=== PATIENT | male | born 1950 | race Caucasian/White ===

== ENCOUNTER 2019-06-16 09:13 | Observation (INO) | payer BC ==
--- NOTE | 2019-06-16 09:52 | ED ---
HPI Chest Pain - HPI Summary HPI Summary: This pt is a 68 Y/O M presenting to [facility] accompanied by his with a CC of Left sided CP that was present since 0845 this morning and has a severity of 4/ 10. He states that his bilateral arms feel light. He states that he and his were driving out of town to head home to [place]. He states that the pain was sharp and he became diaphoretic. He states that he pulled over and let his drive to the hospital. He denies any SOB, N/V, chills, fevers. He states that his chest pain was resolved after being placed in his room. He states that while he was walking he had increased chest pain. He has no aggravating or alleviating factors. He had a slovenian and milk for breakfast. He states that he has a PMHx of indigestion but states that this felt very different. He has a PMHx of DVTs and blood clots and currently takes Coumadin. - History of Current Complaint Chief Complaint: EDChestPainROMI Time Seen by Provider: 06/16/19 09:23 Hx Obtained From: Patient Onset/Duration: Started Hours Ago - 1, Resolved Time of Onset: 08:45 Timing: Constant, Lasting Hours - 1 Initial Severity: Moderate Current Severity: None Pain Intensity: 4 Pain Scale Used: 0-10 Numeric Chest Pain Location: Left Anterior Character: Sharp/Stabbing Aggravating Factor(s): Nothing Alleviating Factor(s): Nothing Associated Signs and Symptoms: Positive: Chest Pain - left sided, Diaphoresis. Negative: Shortness of Breath, Fever, Chills, Nausea, Vomiting - Allergy/Home Medications Allergies/Adverse Reactions: Allergies Allergy/AdvReac Type Severity Reaction Status Date / Time No Known Allergies Allergy Verified 06/16/19 09:21 PMH/Surg Hx/FS Hx/Imm Hx Previously Healthy: Yes Endocrine/Hematology History: Denies: Hx Diabetes Cardiovascular History: Reports: Hx Deep Vein Thrombosis, Hx Hypercholesterolemia, Other Cardiovascular Problems/Disorders - heart murmur Sensory History: Reports: Hx Contacts or Glasses Opthamlomology History: Reports: Hx Contacts or Glasses - Surgical History Surgical History: Yes Surgery Procedure, Year, and Place: clot reduction, IVC filter implantation - Immunization History Immunizations Up to Date: Yes Infectious Disease History: No Infectious Disease History: Denies: Traveled Outside the [place] in Last 30 Days - Family History Known Family History: Positive: Cardiac Disease - paternal , Hypertension - maternal , Diabetes - paternal - Social History Occupation: Employed Full-time Lives: With Family Alcohol Use: None Hx Substance Use: No Substance Use Type: Reports: None Hx Tobacco Use: No Smoking Status (MU): Never Smoked Tobacco Household Exposure: No Review of Systems Positive: Skin Diaphoresis. Negative: Fever, Chills Positive: Chest Pain - left sided Negative: Shortness Of Breath Negative: Vomiting, Nausea All Other Systems Reviewed And Are Negative: Yes Physical Exam - Summary Physical Exam Summary: Appearance: The patient is well-nourished in no acute distress and in no acute pain. Skin: The skin is warm and dry and skin color reflects adequate perfusion. HEENT: The head is normocephalic and atraumatic. The pupils are equal and reactive. The conjunctivae are clear and without drainage. Nares are patent and without drainage. Mouth reveals moist mucous membranes and the throat is without erythema and exudate. The external ears are intact. The ear canals are patent and without drainage. The tympanic membranes are intact. Neck: The neck is supple with full range of motion and non-tender. There are no carotid bruits. There is no neck vein distension. Respiratory: Chest is non-tender. Lungs are clear to auscultation and breath sounds are symmetrical and equal. Cardiovascular: Heart is regular rate and rhythm. There is no murmur or rub auscultated. There is no peripheral edema and pulses are symmetrical and equal. Abdomen: The abdomen is soft and non-tender. There are normal bowel sounds heard in all four quadrants and there is no organomegaly palpated. Musculoskeletal: There is no back tenderness noted. Extremities are non-tender with full range of motion. There is good capillary refill. There is no peripheral edema or calf tenderness elicited. Neurological: Patient is alert and oriented to person, place and time. The patient has symmetrical motor strength in all four extremities. Cranial nerves are grossly intact. Deep tendon reflexes are symmetrical and equal in all four extremities. Psychiatric: The patient has an appropriate affect and does not exhibit any anxiety or depression. Triage Information Reviewed: Yes Vital Signs On Initial Exam: Initial Vitals Temp Pulse Resp BP Pulse Ox 98.2 F 74 16 159/84 98 06/16/19 09:19 06/16/19 09:19 06/16/19 09:19 06/16/19 09:19 06/16/19 09:19 Vital Signs Reviewed: Yes Diagnostics - Vital Signs Vital Signs Temp Pulse Resp BP Pulse Ox 06/16/19 09:26 67 14 163/85 95 06/16/19 09:25 67 7 97 06/16/19 09:19 98.2 F 74 16 159/84 98 - Laboratory Result Diagrams: 06/16/19 10:17 06/16/19 10:17 Lab Statement: Any lab studies that have been ordered have been reviewed, and results considered in the medical decision making process. Chest Pain Course/Dx - Course Course Of Treatment: Mr. Thomas presented after about 30 minutes of chest pain. He was nontoxic in appearance and had stable vital signs when I saw him. His chest pain resolved on its own soon after he presented and I saw him a few minutes after that. EKG was unremarkable as were his initial labs and chest x-ray. His HEART score was a 5 making him a moderate risk. I spoke with Dr. Longo who recommended admission and observation. I spoke with Dr. Goins of the hospitalist team. - Diagnoses Provider Diagnoses: Chest pain Discharge ED - Sign-Out/Discharge Documenting (check all that apply): Patient Departure Patient Received Moderate/Deep Sedation with Procedure: No - Discharge Plan Condition: Stable Disposition: ADMITTED TO [facility] Referrals: No Primary Care Phys,NOPCP [Primary Care Provider] - - Billing Disposition and Condition Condition: STABLE Disposition: Admitted to [facility] - Attestation Statements Document Initiated by Scribe: Yes Documenting Scribe: Harjinder Perrin Provider For Whom Katina is Documenting (Include Credential): Juan No MD Scribe Attestation: IHarjinder, scribed for Juan No MD on 06/16/19 at 1206. Scribe Documentation Reviewed: Yes Provider Attestation: The documentation as recorded by the Harjinder stark accurately reflects the service I personally performed and the decisions made by me, Juan No MD Status of Scribe Document: Viewed
[2019-06-16 10:25] LABS: ABS Eosinophils 0.1 10^3/ul (0-0.6); ABS Lymphocytes 1.3 10^3/ul (1.0-4.8); ABS Monocytes 0.5 10^3/ul (0-0.8); ABS Neutrophils 3.3 10^3/ul (1.5-7.7); Eosinophil % 2.2 %; Hematocrit 46 % (42-52); Hemoglobin 15.7 g/dL (14.0-18.0); Lymphocyte % 25.1 %; Mean Corpuscular HGB Conc 34 g/dL (31-36); Mean Corpuscular Hemoglobin 29 pg (27-31); Mean Corpuscular Volume 86 fL (80-94); Mean Platelet Volume 7.5 fL (7.4-10.4); Platelet Count 224 10^3/uL (150-450); Red Blood Count 5.35 10^6 /uL (4.18-5.48); Red Cell Distribution Width 14 % (10-15); White Blood Count 5.2 10^3/uL (3.5-10.8)
[2019-06-16 10:32] LABS: Activated Partial Thrombo Time 44.4 seconds (26.0-38.0); INR 2.12 (0.82-1.09)
[2019-06-16 11:22] LABS: Albumin 3.9 g/dL (3.2-5.2); Albumin/Globulin Ratio 1.6 (1-3); BUN/Creatinine Ratio 15.2 (8-20); EGFR Non-African American 70.2 (>60); Globulin 2.5 g/dL (2-4); Potassium 3.6 mmol/L (3.5-5.0); Total Bilirubin 0.6 mg/dL (0.2-1.0); Total Protein 6.4 g/dL (6.4-8.9)
[2019-06-16 11:24] LABS: Troponin I 0.01 ng/mL (<0.04)
[2019-06-16] MEDS ORDERED: Al Hydrox/Mg Hydrox/Simet LIQ* 30 ML UDC PO PRN (12:30)
[2019-06-16] MEDS ORDERED: Metoprolol Tartrate TAB* 25 MG PO ONE (12:44)
[2019-06-16] MEDS ORDERED: Aspirin TAB* 325 MG PO ONE (12:45)
--- NOTE | 2019-06-16 15:27 | HP ---
HISTORY AND PHYSICAL: DATE OF ADMISSION: 06/16/19 ADMITTING PROVIDER: Joel Goins MD PRIMARY CARE PROVIDER: Kimberly LewisRea, [place]. CHIEF COMPLAINT: Chest pain, diaphoresis, hand tingling. HISTORY OF PRESENT ILLNESS: Poornima Shelton is a 68-year-old male with past medical history of factor V Leiden deficiency with 4 pulmonary embolisms and multiple DVTs (on Coumadin with lifelong anticoagulation recommendation); hyperlipidemia; obesity (BMI 35.9); status post IVC filter; reported "mild" murmur. He was in his usual state of health when he was visiting [place] for a reunion of [facility] [employer] and [employer] station three days prior to admission. The patient was driving back towards [place] (they had not made it more than a few miles) when he developed 7/10 chest pain in his left chest and some diaphoresis and hand tingling. They decided to switch position so that his could drive to seek medical attention. There was some increased pain when getting into the car from the changing positions, though did not seem to be worsened with any ambulation. His chest pain resolved spontaneously without intervention. By the time he was in the emergency room, getting an EKG which did show normal sinus rhythm with Q-wave in V1, poor R-wave progression, no ST elevations or depressions. Initial troponin was negative. Given his intermediate HEART risk score (age, risk factors of [obesity, hyperlipidemia]), he was referred to hospitalist service for further evaluation and ACS rule out. He did go on a 3-mile hike yesterday without chest pain. PAST MEDICAL HISTORY: Factor V Leiden deficiency, hyperlipidemia, obesity, PEs and DVTs, mild murmur. PAST SURGICAL HISTORY: Includes IVC filter placement; multiple DVT clot removals in 2010 when he fell from an attic and a bookshelf landed on top of him. This caused intracranial bleeding, 5 rib fractures, sternum fracture, C6 fracture. MEDICATIONS: Include: 1. Warfarin 2.5 mg 6 days a week (excluding Monday). 2. Simvastatin 80 mg tabs split in half, so 40 mg daily. ALLERGIES: No known drug allergies. FAMILY HISTORY: His father at age 72 of complications from diabetes, strokes, and he also had some heart disease. His mother just last week from complications of congestive heart failure and she was a DNR and it sounds like she went into cardiac arrest. He has a brother, who is healthy. SOCIAL HISTORY: He is a never smoker. Denies alcohol use or drug use. 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 He exercises but not as much as he used to with biking and walking. He is accompanied by his , Whitney De La Cruz, who is his medical surrogate. He desires to be a full code. REVIEW OF SYSTEMS: A complete 14-point review of systems was negative except as per HPI. He denies any fevers, chills, abdominal pain, diarrhea, constipation, flank pain, dysuria, increased frequency of urination, orthopnea, paroxysmal nocturnal dyspnea, headaches, rashes, nausea, vomiting, indigestion, shortness of breath, wheezing, coughing. PHYSICAL EXAMINATION GENERAL APPEARANCE: In no acute distress. VITAL SIGNS: Temperature 98.2, heart rate 68, respiratory rate 16, satting at 95% on room air, blood pressure 159/84 initially and currently 150/80. HEENT: Normocephalic, atraumatic. Pupils equal, round, and reactive to light. Extraocular motions intact. No scleral icterus. NECK: Supple. LUNGS: Clear to auscultation bilaterally with no wheezing, rales, or rhonchi. CARDIOVASCULAR: Regular rate and rhythm. No murmurs, rubs, or gallops. ABDOMEN: Soft, nontender, slightly obese. No rebound, no guarding, no Vidal sign. EXTREMITIES: Warm, well perfused. He is wearing bilateral compression stockings. He does have some trace pitting edema bilaterally. NEUROLOGIC: Cranial nerves II through XII intact. Web Software Engineer strength 5/5. Finger- to- nose intact. Sensation intact. DIAGNOSTIC STUDIES/LAB DATA: White count 5.2, hemoglobin 15.7, hematocrit 46, platelets 224. INR 2.12. D-dimer less than 200. Sodium 140, potassium 3.6, chloride 110, carbon dioxide 23, BUN 16, creatinine 1.05, glucose 112, lactic acid 1.1. Total bili is 0.6, AST 21, ALT 16, alk phos 77. Troponin 0.01. BNP 86. Imaging: Chest x-ray demonstrated no acute cardiopulmonary process. EKG demonstrated normal sinus rhythm, heart rate 73, Q-wave in V1, some poor R- wave progression, no ST elevations or depressions, QTc is 382, normal axis. Normal EKG. ASSESSMENT AND PLAN: Poornima Shelton is a 68-year-old male with past medical history of obesity (BMI 35.9), hyperlipidemia, presenting with 7/10 chest pain and diaphoresis, negative workup. He is being admitted for acute coronary syndrome rule out given his intermediate HEART score. He does have a history of factor V Leiden deficiency and multiple deep vein thromboses and clots, but they have been in good range for his Coumadin. He just had INR 2.5 last week and his D-dimer was less than 200, lower suspicion for any acute pulmonary embolism that might be causing some of the chest pain. Continue his Coumadin. He tries to avoid aspirin. He is asymptomatic here. We can add on lipid panel, hemoglobin A1c, put in for a treadmill stress test tomorrow. Continue statin, potentially formulary substitute for his simvastatin 40 mg such as atorvastatin. I am going to let him eat a heart-healthy diet until then and repeat troponins every 3 hours and get a repeat EKG at 1600. He is a full code. Medical surrogate is his , Whitney De La Cruz. [id number]/[facility] #: [id number] OLAF
[2019-06-16] MEDS ORDERED: Warfarin TAB(*) 2.5 MG PO SCH (17:00)
[2019-06-16] MEDS ORDERED: Atorvastatin* 20 MG TAB PO SCH (17:00)
[2019-06-17 06:51] LABS: INR 2.23 (0.82-1.09)
[2019-06-17] MEDS ORDERED: Influenza VAC *QUAD* 2019-20* 0.5 ML SYRINGE IM ONE (09:00)
[2019-06-17 11:37] VITALS: BP 140/87
--- NOTE | 2019-06-17 19:30 | DS ---
DISCHARGE SUMMARY: DATE OF ADMISSION: 06/16/19 DATE OF DISCHARGE: 06/17/19 PRIMARY DIAGNOSES: 1. Chest pain. 2. Factor V Leiden mutation with history of multiple blood clots. HOSPITAL COURSE: A 68-year-old male with past medical history of factor V Leiden deficiency with 4 pulmonary embolisms, multiple DVTs; on Coumadin, hyperlipidemia, obesity, and status post IVC filter who was in his usual state of health and was in [place] for a [id number] radio and TV reunion. The patient was driving and developed 7/10 chest pain in his left chest with some diaphoresis and hand tingling. When the patient came to the ER, the patient's initial EKG did not have any ST elevations or depression, showed poor R-wave progression. The patient was observed in the hospital to rule out acute coronary syndrome. His troponins were negative. The patient was seen by Dr. Goins. Please refer to his initial history and physical for details. An exercise cardiac stress was ordered this morning. The patient did well with his exercise cardiac stress today and was asymptomatic and this was within normal limits. The patient has not had any recurrence of his chest pain and wishes to go home. The patient's Coumadin was therapeutic, and the patient's INR was 2.5 last week and D-dimer was less than 200, and there was low suspicion for acute pulmonary embolism, and he was already on Coumadin, to be continued. Vitals and labs noted to be stable at the time of discharge. PHYSICAL EXAMINATION: Temperature 98.4, pulse 59, respiratory rate 16, oxygen saturation 95% on room air, blood pressure 140/87. HEENT: NC/AT. Heart: S1, S2 present. Regular at the time of exam. Lungs: Clear to auscultation bilaterally. Abdomen: Soft. Extremities: No edema. Neuro: Alert, oriented. DIAGNOSTIC STUDIES: 1. Stress test: As discussed above, exercise cardiac stress test noted to be within normal limits. 2. Chest x-ray on 06/16/19: No active cardiopulmonary disease. DISCHARGE MEDICATION LIST: No changes to his meds. The patient is on: 1. Warfarin 2.5 mg p.o. daily. 2. Simvastatin 40 mg p.o. daily. DISCHARGE CONDITION: At this time, the patient is being discharged home in stable condition. FOLLOWUP: The patient is to follow up with his PCP in [place] within a week and to follow up with a food selector there per PCP's discretion. The patient has signed a release to send records to his primary care doctor, who is Dr. Gualberto Blackmon in [place], [place]. TIME SPENT: Total time spent on discharge is equal to 35 minutes. [id number]/[facility] #: [id number] MTDD
== END 2019-06-17 16:30 | disposition home or self-care (01) ==
LOC: ED 09:13 → MEDTELE 12:20
PROVIDERS: ADMIT Internal Medicine; ATTEND Internal Medicine
DX: R07.9 Chest pain, unspecified (principal); D68.51 Activated protein C resistance; Z86.718 Personal history of other venous thrombosis and embolism; Z79.01 Long term (current) use of anticoagulants; Z79.899 Other long term (current) drug therapy; E78.5 Hyperlipidemia, unspecified; Z86.711 Personal history of pulmonary embolism; R01.1 Cardiac murmur, unspecified; E78.00 Pure hypercholesterolemia, unspecified; Z86.79 Personal history of other diseases of the circulatory system
CPT/HCPCS: 36415; 71045; 80053; 80061; 83036; 83605; 83880; 84484; 85025; 85379; 85610; 85730; 90471; 90686; 93005; 93017; 99283; A9270-GY; G0008; G0378